=== PATIENT | female | born 1950 | race Caucasian/White ===

== ENCOUNTER 2017-06-05 14:35 | Day surgery (SDC) | payer MEDICARE, BC ==
[~2017-06-05] VITALS: Ht 160 cm; Wt 74.5 kg
[2017-06-05] MEDS ORDERED: LACTATED RINGERS 1,000 ML IV SCH (14:57)
[2017-06-05] MEDS ORDERED: LIDOCAINE-MPF 1%, 2ML ONE (15:01)
[2017-06-05 15:06] VITALS: BP 168/82
[2017-06-05] MEDS ORDERED: LEVO125T5 PO (15:27)
[2017-06-05] MEDS ORDERED: GABA600T2 PO (15:27)
[2017-06-05] MEDS ORDERED: METH750T87 PO (15:27)
[2017-06-05] MEDS ORDERED: HYDR-3245 PO (15:27)
[2017-06-05] MEDS ORDERED: LIPA1CAP4 PO (15:27)
[2017-06-05] MEDS ORDERED: DIAZ5TAB4 PO (15:27)
[2017-06-05] MEDS ORDERED: AMLO10TA2 PO (15:27)
[2017-06-05] MEDS ORDERED: TRAM50TA2 PO (15:27)
[2017-06-05 15:33] LABS: BASOPHILS # (AUTO) 0.03 x10^3/uL (0-0.1); BASOPHILS % (AUTO) 1 % (0-1); EOSINOPHILS # (AUTO) 0.23 x10^3/uL (0-0.4); EOSINOPHILS % (AUTO) 3 % (1-7); LYMPHOCYTES # (AUTO) 2.34 x10^3/uL (1-3.4); LYMPHOCYTES % (AUTO) 34 % (22-44); MD NO; MEAN CORPUSCULAR HEMOGLOBIN 29.2 pg (27.0-34.8); MEAN CORPUSCULAR HGB CONC 33.1 g/dL (32.4-35.8); MEAN CORPUSCULAR VOLUME 88.3 fL (80-100); MEAN PLATELET VOLUME 9.2 fL (7.4-10.4); MONOCYTES # (AUTO) 0.39 x10^3/uL (0.2-0.8); MONOCYTES % (AUTO) 6 % (2-9); NEUTROPHILS # (AUTO) 3.82 x10^3/uL (1.8-6.8); NEUTROPHILS % (AUTO) 56 % (42-75); PLATELET COUNT 203 x10^3/uL (130-400); RED BLOOD COUNT 4.22 x10^6/uL (3.82-5.3); RED CELL DISTRIBUTION WIDTH 14.3 % (9.6-15.2)
[2017-06-05 15:36] LABS: INTERNATIONAL NORMALIZED RATIO 0.96 (0.93-1.1)
[2017-06-05 15:44] LABS: ALBUMIN 4.1 g/dL (3.4-5.0); ANION GAP 7 mmol/L (5-15); CALCIUM 9.3 mg/dL (8.5-10.1); CHLORIDE 107 mmol/L (98-107)
[2017-06-05 15:50] LABS: ALANINE AMINOTRANSFERASE 26 U/L (12-78); ALKALINE PHOSPHATASE 103 U/L (45-117); BILIRUBIN,TOTAL 0.6 mg/dL (0.2-1.0); CREATININE 1.12 mg/dL (0.55-1.02); TOTAL PROTEIN 8.4 g/dL (6.4-8.2)
[2017-06-05] MEDS ORDERED: MIDAZOLAM 1 MG/ML, 2ML ONE (16:15)
[2017-06-05] MEDS ORDERED: FENTANYL PF 100 MCG/2ML ONE (16:15)
[2017-06-05] MEDS ORDERED: SUCCINYLCHOLINE 20 MG/ML, 10ML ONE (16:18)
[2017-06-05] MEDS ORDERED: PROPOFOL 10 MG/ML, 20ML ONE (16:18)
[2017-06-05] MEDS ORDERED: ONDANSETRON 2MG/ML, 2ML ONE ×2 (16:19→16:28)
[2017-06-05] MEDS ORDERED: EPHEDRINE 50 MG/ML, 1ML ONE (16:19)
[2017-06-05] MEDS ORDERED: DEXAMETHASONE 4 MG/ML, 1ML ONE ×2 (16:19→16:28)
[2017-06-05] MEDS ORDERED: GENTAMICIN 80 MG/2 ML ONE ×5 (16:27→16:30)
[2017-06-05] MEDS ORDERED: OXYcodone 5 MG/5 ML ORAL.SOL UDC PO PRN (17:00)
[2017-06-05] MEDS ORDERED: LABETALOL 5MG/ML, 20ML IV PRN (17:00)
[2017-06-05] MEDS ORDERED: FENTANYL PF 100 MCG/2ML IV PRN (17:00)
[2017-06-05] MEDS ORDERED: ONDANSETRON 2MG/ML, 2ML IVPush PRN (17:00)
[2017-06-05] MEDS ORDERED: morphine SULFATE 10 MG/ML, 1ML IV PRN (17:00)
[2017-06-05] MEDS ORDERED: ACETAMINOPHEN 325 MG TABLET PO PRN (17:00)
[2017-06-05] MEDS ORDERED: MEPERIDINE/PF 25MG/0.5ML IVPush PRN (17:00)
[2017-06-05] MEDS ORDERED: ALBUTEROL SULFATE 2.5 MG/3 ML NPPB PRN (17:00)
[2017-06-05] MEDS ORDERED: hydrALAzine 20 MG/ML, 1ML IV PRN (17:00)
[2017-06-05] MEDS ORDERED: MIDAZOLAM 1 MG/ML, 2ML IV PRN (17:00)
[2017-06-05] MEDS ORDERED: PROMETHAZINE 12.5 MG SUPP PR PRN (17:00)
[2017-06-05] MEDS ORDERED: OXYcodone 5 MG/5 ML ORAL.SOL UDC ONE (17:33)
[2017-06-05 18:54] VITALS: BP 160/90
[2017-06-05] MEDS ORDERED: PHEN-582 PO (20:51)
[2017-06-05] MEDS ORDERED: PHEN100T90 PO (20:54)
[2017-06-05] MEDS ORDERED: OXYB10TA6 PO (20:55)
[2017-06-05] MEDS ORDERED: DOCU100C33 PO (20:56)
[2017-06-05] MEDS ORDERED: POLY17PO3 PO (20:58)
[2017-06-05] MEDS ORDERED: TAMS0.4C2 PO (20:59)
== END 2017-06-05 23:42 | disposition home or self-care (01) ==
LOC: OR 14:35 → 4NOR 18:17 → OR 23:42
PROVIDERS: ATTEND Student in an Organized Health Care Education/Training Program
DX: N20.2 Calculus of kidney with calculus of ureter (principal); I10 Essential (primary) hypertension; E03.9 Hypothyroidism, unspecified; Z90.710 Acquired absence of both cervix and uterus; Z87.891 Personal history of nicotine dependence; Z98.890 Other specified postprocedural states; Z88.1 Allergy status to other antibiotic agents; Z88.0 Allergy status to penicillin; Z88.8 Allergy status to other drugs, medicaments and biological substances
CPT/HCPCS: 36415; 52356; 74018; 76000; 80053; 85025; 85610; 93005; C1758; C1769; C2617; J0330; J1100; J1580; J2250; J2405; J2704; J3010